=== PATIENT | female | born 1955 | race Caucasian/White ===

== ENCOUNTER → 2017-02-24 | Outpatient (CLI) | payer OTHER ==
--- NOTE | 2017-02-24 13:54 | KCIC ---
Bone mineral density exam History: Osteopenia, postmenopausal Comparison: 04/27/2012 Findings: Bone mineral density examination utilizing DEXA was performed. Left hip bone mineral density of 0.754 g/cm2 corresponds with a T score -1.5, Z score -0.5. Compared with the previous exam, there has been -9.8%. The bone mineral density of the lumbar spine was 0.948 g/cm2 which corresponds with a T-score of -0.9, Z score 0.7. Compared with the previous exam, there has been -7.5%. By [employer] on Osteoporosis criteria, a T score of 0 to-1 SD is considered to be within normal limits. A T score of -1 to -2.5 SD is considered osteopenia. A T score less than -2.5 SD is considered osteoporosis Impression: 1. There is osteopenia of the left hip. Bone mineral density of the lumbar spine is considered within normal limits. Electronically signed by: Ronnell Basilio MD (02/24/2017 1:51 PM) [email or web address]
== END | disposition home or self-care (01) ==
LOC: KCIC DEXA 12:47
PROVIDERS: ATTEND Internal Medicine Hematology & Oncology
DX: M85.80 Other specified disorders of bone density and structure, unspecified site (principal); Z78.0 Asymptomatic menopausal state
CPT/HCPCS: 77080